=== PATIENT | female | born 1990 | race Caucasian/White ===

== ENCOUNTER 2020-06-05 21:46 | Emergency (ER) | payer OTHER ==
[2020-06-05] MEDS ORDERED: NORMAL SALINE 1000 ML 1,000 ML IV ONE (22:07)
[2020-06-05] MEDS ORDERED: METOCLOPRAMIDE HCL INJ/PF 10 MG/2 ML SDV IV ONE (22:08)
--- NOTE | 2020-06-05 22:09 | ER Document Report ---
ED Medical Screen (RME) - General Chief Complaint: Dizziness Stated Complaint: DIZZINESS,HEADACHE Time Seen by Provider: 06/05/20 22:06 Mode of Arrival: Ambulatory Information source: Patient Notes: HPI; 30-year-old female presents to the emergency room complaining of dizziness for the past 2 days. States she feels off balance, complains of pressure in her head. Persistent headache for 2 days with photophobia. Denies any trauma or injury. Patient does have a history of migraines. Has been taking her Topamax without relief. PE: Alert and oriented x3. Mild distress noted. Ambulatory with steady gait. PERRLA, EOMI, positive for bilateral photophobia. Lungs: Clear to auscultation without rales, rhonchi, wheezes. Heart: Regular rate rhythm without murmurs, rubs, gallops. I have greeted and performed a rapid initial assessment of this patient. A comprehensive ED assessment and evaluation of the patient, analysis of test results and completion of the medical decision making process will be conducted by additional ED providers. I have specifically instructed the patient or family members with the patient to immediately return to any nursing staff should anything change in the patient's condition or with their chief complaint. TRAVEL OUTSIDE OF THE [place] IN LAST 30 DAYS: No Physical Exam - Vital signs Vitals: Temp Pulse Resp BP Pulse Ox 98.0 F 81 17 109/55 L 98 06/05/20 21:57 06/05/20 21:57 06/05/20 21:57 06/05/20 21:57 06/05/20 21:57 Course - Vital Signs Vital signs: Temp Pulse Resp BP Pulse Ox 98.0 F 81 17 109/55 L 98 06/05/20 21:57 06/05/20 21:57 06/05/20 21:57 06/05/20 21:57 06/05/20 21:57
[2020-06-05 22:33] LABS: ABSOLUTE BASOPHILS # (AUTO) 0.1 10^3/uL (0.0-0.2); ABSOLUTE EOSINOPHILS # (AUTO) 0.2 10^3/uL (0.0-0.6); ABSOLUTE LYMPHOCYTES (AUTO) 2.8 10^3/uL (0.5-4.7); ABSOLUTE MONOCYTES (AUTO) 0.6 10^3/uL (0.1-1.4); ABSOLUTE NEUT (AUTO) 4.9 10^3/uL (1.7-8.2); BASOPHILS % (AUTO) 0.8 % (0-2); EOSINOPHILS % (AUTO) 2.7 % (0-6); HEMATOCRIT 37.1 % (36.0-47.0); HEMOGLOBIN 12.5 g/dL (12.0-15.5); LYMPHOCYTES % (AUTO) 32.8 % (13-45); MEAN CORPUSCULAR HEMOGLOBIN 30.4 pg (27.0-33.4); MEAN CORPUSCULAR HGB CONC 33.7 g/dL (32.0-36.0); MEAN CORPUSCULAR VOLUME 90 fl (80-97); MONOCYTES % (AUTO) 7.3 % (3-13); PLATELET COUNT 285 10^3/uL (150-450); RED CELL DISTRIBUTION WIDTH 14.8 % (11.5-14.0); SEGMENTED NEUTROPHILS % (AUTO) 56.4 % (42-78); TOTAL CELLS COUNTED % (AUTO) 100 %; WHITE BLOOD COUNT 8.7 10^3/uL (4.0-10.5)
[2020-06-05 22:56] LABS: ALBUMIN 4.3 g/dL (3.5-5.0); ALKALINE PHOSPHATASE 103 U/L (38-126); ANION GAP 9 (5-19); ASPARTATE AMINO TRANSFERASE 50 U/L (14-36); BILIRUBIN,DIRECT 0.2 mg/dL (0.0-0.4); BILIRUBIN,TOTAL 0.2 mg/dL (0.2-1.3); BLOOD UREA NITROGEN 20 mg/dL (7-20); CALCIUM 9.6 mg/dL (8.4-10.2); CARBON DIOXIDE 26 mmol/L (22-30); CHLORIDE 106 mmol/L (98-107); GLUCOSE 111 mg/dL (75-110); POTASSIUM 4.1 mmol/L (3.6-5.0); TOTAL PROTEIN 7.6 g/dL (6.3-8.2)
[2020-06-05 22:57] LABS: APPEARANCE,URINE SLIGHTLY-CLOUDY; BILIRUBIN,URINE NEGATIVE (NEGATIVE); COLOR,URINE YELLOW; GLUCOSE, URINE NEGATIVE (NEGATIVE); KETONES,URINE NEGATIVE (NEGATIVE); LEUKOCYTE ESTERASE,URINE NEGATIVE (NEGATIVE); NITRITE,URINE NEGATIVE (NEGATIVE); PROTEIN,URINE NEGATIVE (NEGATIVE); URINE SPECIFIC GRAVITY 1.026; UROBILINOGEN,URINE NEGATIVE mg/dL (<2.0)
--- NOTE | 2020-06-05 23:38 | RADIOLOGY REPORT (SQ) ---
CLINICAL HISTORY: headache COMPARISON: None. TECHNIQUE: CT HEAD WITHOUT IV CONTRAST on 06/05/2020 10:06 PM CDT This exam was performed according to our departmental dose-optimization program, which includes automated exposure control, adjustment of the mA and/or kV according to patient size and/or use of iterative reconstruction technique. FINDINGS: There is no acute hemorrhage, mass effect or midline shift. Wild-white differentiation is preserved. There is no hydrocephalus. There is no significant volume loss for age. The calvarium is intact. Orbits and globes are unremarkable. The paranasal sinuses are clear. Mastoid air cells are clear. IMPRESSION: No acute intracranial findings.
[2020-06-06] MEDS ORDERED: METHOCARBAMOL 500 MG TABLET PO ONE (00:53)
--- NOTE | 2020-06-06 00:58 | ER Document Report ---
ED General - General Chief Complaint: Dizziness Stated Complaint: DIZZINESS,HEADACHE Time Seen by Provider: 06/05/20 22:06 Mode of Arrival: Ambulatory TRAVEL OUTSIDE OF THE [place] IN LAST 30 DAYS: No - HPI Notes: Patient is a 30-year-old family presents emergency department for evaluation of a headache, dizziness, a "fullness" in the side of her head. She has a history of migraines, she states is usually in the front. This is in the back of her head. It was gradual in onset. It is not the worst headache of her life. She states that occasionally she feels like her vision is blurry. She denies any difficulty speaking or swallowing. She denies any difficulty moving her arms and legs, no numbness or tingling. She states that she has been taking her regular Topamax as directed for her migraines without any significant relief. The patient actually has been referred on to neurology already, she has an appointment with her neurologist, new neurologist, on Sunday. She denies any head injuries. No neck stiffness. No fevers. No sore throat. No nasal drainage. - Related Data Allergies/Adverse Reactions: lorazepam Allergy (Verified 06/05/20 23:40) promethazine [From Phenergan] Allergy (Verified 06/05/20 23:40) Home Medications: topomax. protonix Past Medical History - General Information source: Patient - Social History Smoking Status: Current Every Day Smoker Drug Abuse: None Family History: Reviewed & Not Pertinent, CAD, Hypertension Neurological Medical History: Reports: Hx Migraine GI Medical History: Reports: Hx Gastroesophageal Reflux Disease Past Surgical History: Reports: Hx Section, Hx Orthopedic Surgery - "Graphite taken out of my left foot", Hx Tubal Ligation, Other - Colonoscopy and endoscopy Review of Systems - Review of Systems Constitutional: See HPI EENT: See HPI Cardiovascular: No symptoms reported Respiratory: No symptoms reported Gastrointestinal: No symptoms reported Genitourinary: No symptoms reported Musculoskeletal: No symptoms reported Skin: No symptoms reported Neurological/Psychological: No symptoms reported Physical Exam - Vital signs Vitals: Temp Pulse Resp BP Pulse Ox 98.0 F 81 17 109/55 L 98 06/05/20 21:57 06/05/20 21:57 06/05/20 21:57 06/05/20 21:57 06/05/20 21:57 - Notes Notes: Vital signs reviewed, please refer to chart. Head is normocephalic, atraumatic. Pupils equal round, reactive to light. TMs are pearly hansen with good light reflex. Oral mucosa is moist, uvula is midline. Neck is supple without meningismus. She does have tenderness at the base of the occiput which re- creates her pain. Heart is regular rate and rhythm. Lungs are clear to auscultation bilaterally. Abdomen is soft, nontender, normoactive bowel sounds throughout. Extremities without cyanosis, clubbing. Posterior calves are nontender. Peripheral pulses are equal. Skin is warm and dry. Patient is awake, alert, oriented x3. Cranial nerves II - XII are grossly intact without focal neurological deficits. Strength is plus 5 out of 5 bilateral upper and lower extremities. Sensation is intact. Reflexes symmetrical. Intact [id number], rapid alternating movements, [id number]. Course - Re-evaluation Re-evalutation: 06/06/20 00:57 Patient presents to the emergency department for evaluation. She laboratory investigations and imaging is ordered through triage. Laboratory investigations and imaging are unremarkable. Her findings tonight are most consistent with a tension headache. She has tenderness at the base of her occiput. It reproduces her pain and a tension type pattern. She has not really received relief with migraine treatment. I will treat her with a muscle relaxer. She does have to drive herself home. I will send her home with this, she can take it at home. I will write her a prescription for Robaxin, she states she took Flexeril in the past without any significant relief. She is to follow-up with her neurologist on Sunday. She is return to the emergency department with worsening or new con cerning symptoms of any sort. - Vital Signs Vital signs: Temp Pulse Resp BP Pulse Ox 98.0 F 81 17 109/55 L 98 06/05/20 21:57 06/05/20 21:57 06/05/20 21:57 06/05/20 21:57 06/05/20 21:57 - Laboratory Result Diagrams: 06/05/20 22:13 06/05/20 22:13 Laboratory results interpreted by me: 06/05/20 06/05/20 22:13 22:13 RDW 14.8 H Glucose 111 H AST 50 H ALT 76 H - Diagnostic Test Radiology reviewed: Reports reviewed Radiology results interpreted by me: 06/06/20 00:[address] 06/05/20 22:06 IMPRESSION: No acute intracranial findings. Discharge - Discharge Clinical Impression: Dizziness, Tension headache Condition: Stable Disposition: HOME, SELF-CARE Instructions: Tension Headache ([facility]) Additional Instructions: Moist heat to the back of the neck. Take muscle relaxer as directed, watch for drowsiness with this medication. Follow-up with your neurologist as scheduled on Sunday. Return to the emergency department with worsening or new concerning symptoms of any sort.
[2020-06-06 00:59] VITALS: BP 110/80
== END 2020-06-06 01:10 | disposition home or self-care (01) ==
LOC: ER 21:46
DX: G44.209 Tension-type headache, unspecified, not intractable (principal); R42 Dizziness and giddiness; G43.909 Migraine, unspecified, not intractable, without status migrainosus; K21.9 Gastro-esophageal reflux disease without esophagitis; F17.200 Nicotine dependence, unspecified, uncomplicated; Z88.8 Allergy status to other drugs, medicaments and biological substances; Z79.899 Other long term (current) drug therapy
CPT/HCPCS: 99285; 96361; 96374; 36415; 84703; 85025; 80053; 81001; 70450; J2765; J7030